=== PATIENT | female | born 1970 | race Caucasian/White ===

== ENCOUNTER 2019-10-14 10:37 | Outpatient (CLI) | payer OTHER, SELFPAY ==
--- NOTE | ~2019-10-14 | XR_ITS ---
EXAMINATION: XR lg joint inject/asp w image DATE: 10/14/2019 11:56 INDICATION: Left shoulder pain and adhesive capsulitis TECHNIQUE: A time-out was performed to verify the patient's name, date of , and procedure to b e performed. The procedure including the risks, benefits, and alternatives was discussed with the pat ient. Risks discussed included bleeding and infection. The patient understood the risks and agreed to proceed. The skin overlying the rotator cuff interval of the left glenohumeral joint was prepped an d draped in usual sterile fashion. Anesthetic was administered with 1% lidocaine subcutaneously. A 22 G needle was advanced under fluoroscopic guidance into the joint. Injection of 0.6 mL of Omnipaqu e 240 confirmed intra-articular position of the needle. Subsequently, injectate consisting of 5 mm o f a 4:1 mixture of 1% lidocaine: 80 mg/mL Depo-Medrol for a total dose of 80 mg Depo-Medrol was insti lled. Washout of contrast was seen confirming intra-articular administration. The needle was removed and the entry site was cleaned and dressed. There were no immediate complications. Fluoroscopy expos ure time was 0.1 minutes. The total number of images was 2. FINDINGS: Real-time fluoroscopy demonstrates the needle in the left glenohumeral joint. Patient's celso n when lifting prior to procedure:10/10. Patient's pain with lifting following the procedure: 0/10. IMPRESSION: 1. Left glenohumeral injection of local anesthetic and steroid with decrease in the patient's present ing pain. Reviewed, dictated and finalized at location A. IMPRESSION: 1. Left glenohumeral injection of local anesthetic and steroid with decrease in the patient's presenting pain.
== END 2019-10-14 10:38 | disposition home or self-care (01) ==
PROVIDERS: Visit Provider Orthopaedic Surgery
DX: M25.512 Pain in left shoulder (principal); M75.02 Adhesive capsulitis of left shoulder
CPT/HCPCS: 20610; 77002; J1040; Q9966